=== PATIENT | female | born 2005 ===

== ENCOUNTER → 2024-03-30 | Outpatient (CLI) | payer OTHER ==
[2024-04-02 19:18] LABS: APTIMA MEDIA TYPE Urine; C. TRACHOMATIS BY TMA Negative (Negative); N. GONORRHOEAE BY TMA Negative (Negative); SPECIMEN SOURCE Urine
== END ==
LOC: LAB 17:35 → LAB SHORT 17:35
PROVIDERS: Registered Nurse Community Health
DX: Z34.93 Encounter for supervision of normal pregnancy, unspecified, third trimester (principal)
CPT/HCPCS: 87081; 87150; 87491; 87591

== ENCOUNTER → 2024-04-05 | Outpatient (CLI) | payer OTHER ==
[~2024-04-05] MED LIST: ALBU90OI INH; PRENATAL TABLE1 EAC2
[2024-04-07 13:54] LABS: APTIMA MEDIA TYPE Urine; C. TRACHOMATIS BY TMA Negative (Negative); N. GONORRHOEAE BY TMA Negative (Negative); SPECIMEN SOURCE Urine
== END ==
LOC: LAB 14:40 → LAB SHORT 14:40
PROVIDERS: Registered Nurse Community Health
DX: Z34.93 Encounter for supervision of normal pregnancy, unspecified, third trimester (principal)
CPT/HCPCS: 87491; 87591

== ENCOUNTER → 2024-04-13 | Outpatient (CLI) | payer OTHER ==
[2024-04-15 13:47] LABS: APTIMA MEDIA TYPE Urine; C. TRACHOMATIS BY TMA Negative (Negative); N. GONORRHOEAE BY TMA Negative (Negative); SPECIMEN SOURCE Urine
== END | disposition home or self-care (01) ==
LOC: LAB SHORT 13:54
PROVIDERS: Registered Nurse Community Health
DX: Z34.93 Encounter for supervision of normal pregnancy, unspecified, third trimester (principal)
CPT/HCPCS: 87491; 87591

== ENCOUNTER 2024-04-17 20:04 | Inpatient (IN) | payer OTHER ==
[~2024-04-17] VITALS: Ht 165.1 cm; Wt 131.8 kg
[2024-04-17] MEDS ORDERED: Misoprostol 200 MCG Tab XX PRN (20:25)
[2024-04-17] MEDS ORDERED: Methylergonovine Maleate 0.2MG / ML 1ML Amp IM PRN (20:25)
[2024-04-17] MEDS ORDERED: Ondansetron HCl 2 MG / ML 2ML Vial IV PRN (20:25)
[2024-04-17] MEDS ORDERED: Lactated Ringer's 1,000 ML IV PRN ×3 (20:25→20:30)
[2024-04-17] MEDS ORDERED: Acetaminophen 500 MG Tab PO PRN (20:25)
[2024-04-17] MEDS ORDERED: Misoprostol 200 MCG Tab PR PRN (20:25)
[2024-04-17] MEDS ORDERED: Oxytocin 10 Unit / ML Vial IM PRN (20:25)
[2024-04-17] MEDS ORDERED: Carboprost Tromethamine 250 MCG/ML 1ML Amp IM PRN (20:25)
[2024-04-17] MEDS ORDERED: OXYTOCIN/RINGER'S LACTATE 500 ML IV SCH (20:25)
[2024-04-17] MEDS ORDERED: ePHEDrine Sulfate 50 MG/ML 1ML Injection XX PRN (20:25)
[2024-04-17] MEDS ORDERED: FentaNYL 2mcg/ml-Bup 0.1% Epd 250 ML EPI PRN (20:25)
[2024-04-17] MEDS ORDERED: Tranexamic Acid 100 ML IV SCH (20:25)
[2024-04-17] MEDS ORDERED: Calcium Carbonate 500 MG Tab Chew PO PRN (20:30)
[2024-04-17] MEDS ORDERED: Misoprostol 25 MCG Tab VAG PRN (20:35)
[2024-04-17] MEDS ORDERED: PRENATAL TABLE1 EAC2 (21:22)
[2024-04-17] MEDS ORDERED: ALBU90OI INH (21:22)
[2024-04-17 21:34] VITALS: BP 133/72
[2024-04-17 21:37] LABS: BASOPHILS ABSOLUTE AUTO 0.05 K/mm3 (0.00-0.23); BASOPHILS PERCENT AUTO 0 % (0-2); EOSINOPHILS ABSOLUTE AUTO 0.12 K/mm3 (0.00-0.68); EOSINOPHILS PERCENT AUTO 1 % (0-6); Hematocrit 36.3 % (33.0-51.0); Hemoglobin 12.3 g/dL (11.5-16.0); IMMATURE GRAN ABSOLUTE AUTO 0.09 K/mm3 (0.00-0.10); IMMATURE GRAN PERCENT AUTO 1 % (0-1); LYMPHOCYTES ABSOLUTE AUTO 2.69 K/mm3 (0.84-5.20); LYMPHOCYTES PERCENT AUTO 20 % (21-46); MONOCYTES ABSOLUTE AUTO 0.61 K/mm3 (0.16-1.47); MONOCYTES PERCENT AUTO 4 % (4-13); Mean Corpuscular HGB 28.3 pg (26.0-34.0); Mean Corpuscular HGB Conc 33.9 g/dL (31.5-36.5); Mean Corpuscular Volume 83 fL (80-100); Mean Platelet Volume 9.9 fL (9.1-12.4); NEUTROPHILS ABSOLUTE AUTO 10.21 K/mm3 (1.96-9.15); NEUTROPHILS PERCENT AUTO 74 % (41-73); Platelet Count 326 K/mm3 (150-400); RDW Coefficient Variation 14.5 % (11.7-14.2); RDW Standard Deviation 43.8 fL (35.1-46.3); Red Blood Cell Count 4.35 M/mm3 (3.80-5.20); White Blood Cell Count 13.77 K/mm3 (4.00-11.30)
[2024-04-18] VITALS (39 sets, daily range): BP systolic 125–181; BP diastolic 63–113
[2024-04-18] MEDS ORDERED: FentaNYL Citrate 50 MCG/ML 2 ML Injection IV PRN (04:20)
[2024-04-18] MEDS ORDERED: OXYTOCIN/RINGER'S LACTATE 500 ML IV SCH (06:35)
[2024-04-18] MEDS ORDERED: NS 1,000 ML IV ONE (17:34)
[2024-04-18] MEDS ORDERED: NS 1,000 ML BAG IR SCH (17:45)
[2024-04-18] MEDS ORDERED: Witch Hazel/Glycerin PADS TOP PRN (22:30)
[2024-04-18] MEDS ORDERED: Docusate Sodium 100 MG Cap PO PRN (22:30)
[2024-04-18] MEDS ORDERED: Lactated Ringer's 1,000 ML IV SCH (22:35)
[2024-04-18] MEDS ORDERED: Acetaminophen 325 MG TABLET PO PRN (22:35)
[2024-04-18] MEDS ORDERED: Benzocaine Topical Anesthetic Spray 60GM TOP PRN (22:35)
[2024-04-18] MEDS ORDERED: Lanolin Cream TOP PRN (22:35)
[2024-04-18] MEDS ORDERED: OxyCODONE 5 mg/Acetamin 325 mg TABLET PO PRN (22:35)
[2024-04-18] MEDS ORDERED: Ketorolac Tromethamine 30mg Vial IV SCH (23:00)
--- NOTE | 2024-04-19 00:30 | NUR ---
UNABLE TO RUB FUNDUS AT [address] ROSAS SUTURING ANTHONY AREA.
--- NOTE | 2024-04-19 00:31 | NUR ---
2330 FUNDAL RUB POSTPONED FOR MATERNAL BONDING.
[2024-04-19 04:03] VITALS: BP 141/79
[2024-04-19 08:20] VITALS: BP 131/77
[2024-04-19 08:26] LABS: Hematocrit 32.9 % (33.0-51.0); Hemoglobin 11.1 g/dL (11.5-16.0); Mean Corpuscular HGB 28.3 pg (26.0-34.0); Mean Corpuscular HGB Conc 33.7 g/dL (31.5-36.5); Mean Corpuscular Volume 84 fL (80-100); Platelet Count 266 K/mm3 (150-400); RDW Coefficient Variation 14.6 % (11.7-14.2); RDW Standard Deviation 44.7 fL (35.1-46.3); Red Blood Cell Count 3.92 M/mm3 (3.80-5.20); White Blood Cell Count 14.53 K/mm3 (4.00-11.30)
--- NOTE | 2024-04-19 08:32 | NUR ---
pt unsure if wants to go home today. will let rn know after lunch time
[2024-04-19 08:44] LABS: Albumin, Blood 2.2 g/dL (3.4-5.0); Albumin/Globulin Ratio 0.6 (0.8-1.8); Bilirubin, Total 1.6 mg/dL (0.1-1.0); Bun/Creatinine Ratio 15.2 (12.0-20.0); Calcium, Blood 9.2 mg/dL (8.5-10.1); Creatinine, Blood 0.53 mg/dL (0.40-1.00); Globulin, Blood 3.8 g/dL (2.2-4.0)
[2024-04-19] MEDS ORDERED: Prenatal Vit/FE Fumarate/FA 1 Tab PO SCH (09:00)
[2024-04-19 11:20] VITALS: BP 139/78
[2024-04-19] MEDS ORDERED: Naproxen 500 MG Tab PO PRN (12:00)
[2024-04-19 16:55] VITALS: BP 138/71
[2024-04-19 19:07] VITALS: BP 146/82
[2024-04-19 22:43] VITALS: BP 143/83
[2024-04-20 03:01] VITALS: BP 132/80
[2024-04-20 07:36] VITALS: BP 130/78
--- NOTE | 2024-04-20 12:11 | NUR ---
REVIEWED DISCHARGE INSTRUCTIONS WITH PT BOTH VERBAL AND WRITTEN. FAMILY VERBALIZES UNDERSTANDING. MOTHER FEELS LIKE ISN'T STAYING LATCHED LONG ENOUGH DUE TO HER MILK NOT BEING IN YET. MOTHER GIVEN SNS AND IS USING HER OWN EXPRESSED COLOSTRUM AND ALSO DONOR BREAST MILK PER DR JUAREZ'S VERBAL REQUEST. PT GIVEN 120ML DONOR BREAST MILK TO TAKE HOME AND USE WITH THE SNS SYSTEM UNTIL HER OWN BREASTMILK COMES IN. PT DISCHARGED WITH BABY AND ALL BELONGINGS AT 1107. ESCORTED TO PRIVATE CAR WITHOUT INCIDENT. PLACED IN CAR SEAT CARRIER AND PLACED REAR FACING.
--- NOTE | 2024-04-20 12:19 | NUR ---
PER PT. DR ROSAS CALLED IN COLACE AND IBUPROFEN TO [facility] FOR THE PT. THE PT IS GOING TO [facility] ON HER WAY HOME
== END 2024-04-20 11:10 | disposition home or self-care (01) | DRG 807 ==
LOC: OBS 20:04 → BC 20:08 → OBS 20:31 → BC 20:32
PROVIDERS: Family Medicine; ADMIT Registered Nurse Community Health
PROC: 3E033VJ Introduction of Other Hormone into Peripheral Vein, Percutaneous Approach (ICD-10-PCS; principal; 2024-04-17)
PROC: 00HU33Z Insertion of Infusion Device into Spinal Canal, Percutaneous Approach (ICD-10-PCS; 2024-04-17)
PROC: 3E0P7VZ Introduction of Hormone into Female Reproductive, Via Natural or Artificial Opening (ICD-10-PCS; 2024-04-17)
PROC: 3E0R3BZ Introduction of Anesthetic Agent into Spinal Canal, Percutaneous Approach (ICD-10-PCS; 2024-04-17)
PROC: 10E0XZZ Delivery of Products of Conception, External Approach (ICD-10-PCS; 2024-04-18)
PROC: 0KQM0ZZ Repair Perineum Muscle, Open Approach (ICD-10-PCS; 2024-04-18)
DX: O24.429 Gestational diabetes mellitus in childbirth, unspecified control (principal); Z37.0 Single live birth; O99.52 Diseases of the respiratory system complicating childbirth; J45.909 Unspecified asthma, uncomplicated; O99.214 Obesity complicating childbirth; O13.4 Gestational [pregnancy-induced] hypertension without significant proteinuria, complicating childbirth; E66.01 Morbid (severe) obesity due to excess calories; O70.1 Second degree perineal laceration during delivery; Z88.1 Allergy status to other antibiotic agents; Z67.20 Type B blood, Rh positive; Z79.51 Long term (current) use of inhaled steroids; Z79.82 Long term (current) use of aspirin; Z79.899 Other long term (current) drug therapy
CPT/HCPCS: 36415; 36416; 51702; 59070; 80053; 82947; 85025; 85027; 86850; 86900; 86901; 86923; A9270; J1885; J2405; J7030; J7120